=== PATIENT | female | born 1980 | race Caucasian/White ===

== ENCOUNTER 2017-03-15 16:17 | Emergency (ER) | payer SELFPAY ==
--- NOTE | ~2017-03-15 | ER ---
PATIENT'S NAME: JOANA VOGTANDA [facility]rin [facility] AGE: 36 Y [address] ROOM: [place] [id number] LOCATION: [facility] ADMIT DATE: 03/15/2017 ER/Outpatient Report DISCHARGE DATE: 03/15/2017 FAMILY PHYSICIAN: PHYSICIAN, NO ATTENDING PHYSICIAN: Dl Lai Time of Arrival: 1617 hours. Time of Evaluation: 1625 hours. CHIEF COMPLAINT: Bilateral pain in elbows and hands. HISTORY OF PRESENT ILLNESS: This is a 36-year-old female, who presents to the ER. She states she has history of bilateral carpal tunnel that she has been dealing with for several years. She states that she was supposed to have surgery on her carpal tunnel, but she could not afford the surgeries that she has been dealing with her pain. 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 She denies any trauma to the elbows. It is just achy pain, and it is sharp in nature at times. She states she has not seen anybody here in [place] for this. ALLERGIES: NO KNOWN ALLERGIES. MEDICATIONS: Please medication list in nurse's notes. PAST MEDICAL HISTORY: Carpal tunnel to bilateral wrists. She has anxiety. She has history of stress. She has a history of cervical cancer. SOCIAL HISTORY: She smokes half pack a day for the last 20 years. Drinks alcohol occasionally. REVIEW OF SYSTEMS: CONSTITUTIONAL: Denies any change in weight or fatigue. MUSCULOSKELETAL: Complaining of bilateral elbow and wrist pain. HEME: No easy bruising or bleeding. SKIN: No lesions or rashes. PHYSICAL EXAMINATION: VITAL SIGNS: Height 5 feet 8 inches stated, weight 80.9 kg taken, blood PAT[facility]'S NAME: [facility] AGE: 36 Y [address] ROOM: [place] [address] LOCATION: [facility] ADMIT DATE: 03/15/2017 ER/Outpatient Report DISCHARGE DATE: 03/15/2017 FAMILY PHYSICIAN: PHYSICIAN, NO ATTENDING PHYSICIAN: Dl Lai pressure is 111/68, pulse 82, respirations 18, temperature 98.4 degrees with a temporal scanner, 98% on room air. [place] Coma Score is 15. GENERAL: An alert, calm, well-developed female, in no acute distress. EXTREMITIES: No clubbing or cyanosis. I can not elicit any pain with palpation over any of the bony aspects of her elbows or her wrist, but she does have pain with range of motion bilaterally. She maybe has some slight swelling noted to her right elbow compared to her left. She has good radial pulses bilaterally. She does have tenderness with flexion and extension of her wrist. LABORATORY DATA AND X-RAYS: None were done. IMPRESSION: 1. Bilateral tendonitis to elbows. 2. History of carpal tunnel, bilateral wrists. ASSESSMENT AND PLAN: I did give the patient reassurance. I am going to send her home with a prescription for ibuprofen to use as directed. I advised to ice, monitor her symptoms. I did provide her with a work note, and I would like [facility]. The patient understands and agrees with care. NHI RAMOS PA-C FOR MD IVONE LEVY/james /[id number] d: 03/15/[id number] t: 04/08/17 0851, OUTPATIENT REPORT
== END 2017-03-15 16:59 | disposition disaster alternative care site (69) ==
LOC: GMED 16:17
DX: M77.8 Other enthesopathies, not elsewhere classified (principal); G56.03 Carpal tunnel syndrome, bilateral upper limbs; F41.9 Anxiety disorder, unspecified; F17.210 Nicotine dependence, cigarettes, uncomplicated; Z85.830 Personal history of malignant neoplasm of bone